=== PATIENT | female | born 1970 | race Caucasian/White ===

== ENCOUNTER → 2021-09-03 11:00 | Outpatient (BNVA) | payer MEDICARE, SELFPAY | PROVIDERS: PCP Internal Medicine; Referring Provider Internal Medicine; Visit Provider Specialist | DX: R56.9 Unspecified convulsions (principal); R27.0 Ataxia, unspecified; G47.10 Hypersomnia, unspecified; G92.9 Unspecified toxic encephalopathy; F32.9 Major depressive disorder, single episode, unspecified; F41.9 Anxiety disorder, unspecified | CPT/HCPCS: 36415; 82140; 82746; 83516; 83519; 84450; 84460; 86140; 96116; 99205 ==